=== PATIENT | female | born 1960 | race Caucasian/White ===

== ENCOUNTER 2021-10-21 22:04 | Observation (INO) | payer OTHER, SELFPAY ==
[2021-10-21 22:33] VITALS: BP 136/78; PULSE 88; RESP 16; TEMP 36.9; O2SAT 99; BMI 22.8
[2021-10-22] VITALS (26 sets, daily range): BP systolic 83–135; BP diastolic 48–74; PULSE 61–95; RESP 16–19; TEMP 36.6–37.8; O2SAT 93–100; BMI 22.8
--- NOTE | 2021-10-22 00:40 | CTR_ITS ---
PROCEDURE INFORMATION: Exam: CT Abdomen And Pelvis With Contrast Exam date and time: 10/22/2021 12:40 AM Age: 61 years old Clinical indication: Nausea and vomiting; Abdominal pain; Localized; Right upper quadrant (ruq); Additional info: Ruq pain TECHNIQUE: Imaging protocol: Computed tomography of the abdomen and pelvis with contrast. Radiation optimization: All CT scans at this facility use at least one of these dose optimization techniques: automated exposure control; mA and/or kV adjustment per patient size (includes targeted exams where dose is matched to clinical indication); or iterative reconstruction. Contrast material: OMNI 300; Contrast volume: 95 ml; Contrast route: INTRAVENOUS (IV); COMPARISON: US Renal Kidney Structu* [id number] 2016-02-12 14:17 RADIATION DOSE METRICS: Total DLP (mGy-cm): 1066.72 FINDINGS: Liver: Normal. No mass. Gallbladder and bile ducts: Normal. No calcified stones. No ductal dilation. Pancreas: Normal. No ductal dilation. Spleen: Normal. No splenomegaly. Adrenal glands: Normal. No mass. Kidneys and ureters: For 9 mm benign simple right renal cyst. Small, less than 5 mm, renal hypodensity. Highly likely to be benign and does not require follow-up imaging or biopsy per ACR. Stomach and bowel: Gastritis with gastric wall thickening versus incomplete distension. Appendix: 9 mm thickened appendix containing numerous appendicoliths. Minimal stranding. Suspicious for acute appendicitis. Intraperitoneal space: Unremarkable. No free air. No significant fluid collection. Vasculature: Circumaortic left renal vein. Lymph nodes: Unremarkable. No enlarged lymph nodes. Urinary bladder: Unremarkable as visualized. Reproductive: Hysterectomy. Bones/joints: Unremarkable. No acute fracture. Soft tissues: Unremarkable. CT/CT abdomen pelvis w con* [id number] IMPRESSION: 1. 9 mm thickened appendix contains numerous appendicoliths. Minimal stranding. Suspicious for acute appendicitis. 2. Gastritis with gastric wall thickening versus incomplete distension. 3. No radiopaque gallstones or duct dilatation. COMMENTS: Consistent with the [employer]'s Incidental Findings Committee white paper (J Am Angi Radiol 2018): Any incidental renal lesion less than 1 cm or classified as too small to characterize, or any incidental cystic renal lesion characterized as simple-appearing, is likely benign. No follow-up imaging is recommended for these lesions per consensus recommendations based on imaging criteria. Radiation Dose CTDIVOL = (mGy): DLP = 1066.72 (mGy-cm)
[2021-10-22 00:55] LABS: Basophils % 0.2 %; Hematocrit 39.2 % (37.0-47.0); Hemoglobin 12.9 g/dL (11.5-15.3); Lymphocytes # 0.4 10^3/uL (0.8-4.8); Lymphocytes % 2.2 %; Mean Corpuscular HGB Conc 32.9 g/dL (30.0-36.0); Mean Corpuscular Hemoglobin 31.4 pg (28.0-34.0); Mean Corpuscular Volume 95.4 fl (81-99); Mean Platelet Volume 12.2 fL (7.4-10.4); Monocytes # 0.6 10^3/uL (0.2-0.9); Monocytes % 3.1 %; Neutrophils # 17.45 10^3/uL (1.8-7.7); Nucleated Red Blood Cells % 0 %; Platelet Count 193 10^3/cmm (130-400); Red Blood Count 4.11 10^6/uL (4.1-5.3); White Blood Count 18.6 10^3/uL (4.0-10.0)
[2021-10-22] MEDS: ketorolac 30 mg/mL INJ 15 MG IVP (01:00)
[2021-10-22] MEDS: morphine 4 mg/mL SDV 1 mL IVP ×5 (01:01→08:12)
[2021-10-22] MEDS: ondansetron 2 mg/ML SDV 2 mL 4 MG IVP ×2 (01:03→06:13)
[2021-10-22 01:17] LABS: Alanine Aminotransferase 17 U/L (0-33); Albumin Level 4.3 g/dL (3.5-5.2); Alkaline Phosphatase 44 IU/L (35-105); Anion Gap 18.1 (5-19); Aspartate Amino Transferase 19 U/L (0-32); Blood Urea Nitrogen 14 mg/dL (8-23); Calcium 8.6 mg/dL (8.5-10.5); Carbon Dioxide 21 mmol/L (22-29); Chloride 103 mmol/L (98-107); Globulin 2.3 g/dL (1.3-4.6); Glucose 120 mg/dL (65-115); Lipase 16 U/L (13-60); Osmolality Calculated 288 mOsm/kg (285-295); Potassium 4.1 mmol/L (3.5-5.1); Sodium 138 mmol/L (136-145); Total Bilirubin 0.5 mg/dL (0.15-1.2); Total Protein 6.6 g/dL (6.6-8.7)
[2021-10-22] MEDS: iohexol 300 mg/mL 100 mL Btl IV (01:40)
--- NOTE | 2021-10-22 02:05 | ED_ITS ---
HPI - Abdominal Pain General: Chief Complaint: Abdominal Pain Stated Complaint: abd pain Time Seen by Provider: 10/22/21 00:34 History of Present Illness: MD elicited complaint: abdominal pain Pertinent past history: other Onset (ago): hour(s) Pain Consistency: constant Location: Epigastric and RUQ Severity: severe Quality: stabbing and aching Radiation: back Migration to: no migration Relieving factors: nothing Associated Symptoms: Reports vomiting; Denies change in bowel habits, change in stool character, diarrhea, fever(s) and hematemesis Review of Systems Const: Denies: fever(s) Card: Denies: chest pain Resp: Denies: dyspnea GI: Reports: vomiting; Denies: hematemesis, diarrhea, change in bowel habits or change in stool character Physical Exam Const: COMMON NORMALS: patient oriented x3 and alert GENERAL APPEARANCE: ill appearing NUTRITIONAL APPEARANCE: thin HENMT: COMMON NORMALS: normocephalic HEAD & SCALP: normocephalic Chest: COMMONS NORMALS: normal inspection of the chest Resp: COMMON NORMALS: normal respiratory effort, No use of accessory muscles and clear to auscultation bilaterally AUSCULTATION: clear to auscultation bilaterally Cardio: COMMON NORMALS: regular rate and regular rhythm RATE: regular rate RHYTHM: regular rhythm GI: COMMON NORMALS: Normal to inspection, nondistended, normoactive bowel sounds present PALPATION: Yes Firmness to palpation present (GI), Yes Tenderness to palpation present (GI) and Yes Guarding due to palpation present (GI) Neuro: COMMON NORMALS: patient oriented x3 SENSORIUM/ORIENTATION: Yes alert Course Consultations: Consultation #1: Josh Time: 03:35 Vital Signs: Vital signs: Vital Signs Temperature 98.5 F 10/21/21 22:33 Pulse Rate 81 10/22/21 01:03 Respiratory Rate 16 10/22/21 02:51 Blood Pressure 135/74 10/22/21 01:03 Pulse Oximetry 97 10/22/21 01:03 MDM - Abdominal Pain MDM Narrative: Medical decision making narrative: 61-year-old female with essentially epigastric pain which is now migrated to her right lower quadrant. Her white blood cell count is 18.6 with 90% neutrophils. Her bicarbonate level is 21. She is received a liter of fluid. By CT scan, she has a 9 mm appendix with periappendiceal fat stranding. She has an allergy to penicillins. She will get ciprofloxacin and Flagyl. Surgery notified agrees to observation Lab Data: Labs: Lab Results 10/22/21 10/22/21 10/22/21 00:46 00:46 03:24 WBC 18.6 10^3/uL H 10 ^3/uL (4.0-10.0) RBC 4.11 10^6/uL 10^6 /uL (4.1-5.3) Hgb 12.9 g/dL g/dL (11.5-15.3) Hct 39.2 % % (37.0-47.0) MCV 95.4 fl fl (81-99) MCH 31.4 pg pg (28.0-34.0) MCHC 32.9 g/dL g/dL (30.0-36.0) RDW 12.0 % L % (12.1-15.1) Plt Count 193 10^3/cmm 10^3 /cmm (130-400) MPV 12.2 fL H fL (7.4-10.4) Neut % (Auto) 94.0 % % Lymph % (Auto) 2.2 % % [place] % (Auto) 3.1 % % Eos % (Auto) 0.0 % % Baso % (Auto) 0.2 % % Neut # (Auto) 17.45 10^3/uL H 1 0^3/uL (1.8-7.7) Lymph # (Auto) 0.4 10^3/uL L 10^ 3/uL (0.8-4.8) [place] # (Auto) 0.6 10^3/uL 10^3/ uL (0.2-0.9) Eos # (Auto) 0.0 10^3/uL 10^3/ uL (0.0-0.8) Baso # (Auto) 0.0 10^3/uL 10^3/ uL (0.0-0.1) Nucleated RBC % (a uto) 0 % % Nucleated RBCs # 0.0 /100WBC /100W BC Sodium 138 mmol/L mmol/L (136-145) Potassium 4.1 mmol/L mmol/L (3.5-5.1) Chloride 103 mmol/L mmol/L (98-107) Carbon Dioxide 21 mmol/L L mmol/ L (22-29) Anion Gap 18.1 (5-19) BUN 14 mg/dL mg/dL (8-23) Creatinine 0.6 mg/dL mg/dL (0.5-0.9) GFR Calculation 102.0 mL/min mL/m in (90-130) Glucose 120 mg/dL H mg/dL (65-115) Calculated Osmolal ity 288 mOsm/kg mOsm/ kg (285-295) Calcium 8.6 mg/dL mg/dL (8.5-10.5) Total Bilirubin 0.5 mg/dL mg/dL (0.15-1.2) AST 19 U/L U/L (0-32) ALT 17 U/L U/L (0-33) Alkaline Phosphata se 44 IU/L IU/L (35-105) Total Protein 6.6 g/dL g/dL (6.6-8.7) Albumin 4.3 g/dL g/dL (3.5-5.2) Globulin 2.3 g/dL g/dL (1.3-4.6) Lipase 16 U/L U/L (13-60) Urine Color Yellow (Yellow) Urine Appearance Clear (CLEAR) Urine pH 5 (5-7) Ur Specific Gravit y 1.015 (1.005-1.030) Urine Protein Neg (Negative) Urine Glucose (UA) Norm (Normal) Urine Ketones 2+ H (Negative) Urine Blood 2+ H (Negative) Urine Nitrate Negative (Negative) Urine Bilirubin Neg (Negative) Urine Urobilinogen Norm mg/dL mg/dL (Negative) Ur Leukocyte Milagros ase Negative (Negative) Amorphous Sediment Not Reportable Discharge Plan Discharge Patient Disposition: Placed in Observation Clinical Impression: Acute appendicitis Qualifiers: Acute appendicitis type: with localized peritonitis Appendicitis gangrene presence: without gangrene Appendicitis perforation presence: without perforation Appendicitis abscess presence: without abscess Qualified Code(s): K35.30 - Acute appendicitis with localized peritonitis, without perforation or gangrene Coding Level of Care Code ED Continuity Reader for [facility] Fwd Exam Detailed
[2021-10-22] MEDS: sodium chloride 0.9% 1,000 ML 999 ML IV (02:40)
[2021-10-22 03:34] LABS: Add Urine Microscopic? YES; Bilirubin Urine Neg (Negative); Blood Urine 2+ (Negative); Glucose Urine UA Norm (Normal); Ketones Urine 2+ (Negative); Leukocyte Esterase Urine Negative (Negative); Nitrate Urine Negative (Negative); Protein Urine Neg (Negative); Specific Gravity, Urine 1.015 (1.005-1.030); Urine Appearance Clear (CLEAR); Urine Color Yellow (Yellow); Urobilinogen Urine Norm (Negative); pH Urine 5 (5-7)
[2021-10-22] MEDS: ciprofloxacin 400 MG/200 ML PREMIX 200 MG IV ×2 (03:38→15:09)
[2021-10-22 03:39] LABS: Add Urine Culture? No; Bacteria Urine TRACE /hpf; RBC Urine 0-4 /hpf (0-2); Squamous Epithelial Cell Urine 0-4 /hpf (0-5); WBC Urine 0-4 /hpf (0-5)
[2021-10-22] MEDS: metroNIDAZOLE IV 500 MG/100 ML PREMIX 100 MG IV ×3 (04:08→21:42)
[2021-10-22] MEDS: sodium chloride 0.9% 1,000 ML 125 ML IV (06:06)
--- NOTE | 2021-10-22 07:01 | PM.HP ---
Providers/Chief Complaint Admitting Physician: Champ Moreno MD Chief Complaint: abd pain History of Present Illness Yamile Arellano is a 61 year old female who developed some lower back pain yesterday. She thought maybe she was constipated even though her bowel habits have been fairly normal recently, and used a couple enemas at home without any significant results. She said the pain then moved to the anterior aspect of her abdomen in the epigastrium. Over the last 12 hours it has moved down to the right lower quadrant. She says she had chills at home and had several episodes of vomiting. There was no evidence of hematemesis. She came to the emergency room and a CAT scan showed changes consistent with acute appendicitis. Review of Systems Const: Reports: chills GI: Reports: abdominal pain, nausea and vomiting; Denies: change in bowel habits Medications/Allergies Allergies Allergy/AdvReac Type Severity Reaction Status Date / Time amoxicillin [From Augmentin] Allergy ALGY-Swell Verified 10/21/21 22:42 Lip/Tongue/Throat cefdinir [From Omnicef] Allergy ALGY-Swell Verified 10/21/21 22:42 Lip/Tongue/Throat clarithromycin [From Biaxin] Allergy ADR-Abdominal Verified 10/21/21 22:42 Pain clavulanic acid Allergy ALGY-Swell Verified 10/21/21 22:42 [From Augmentin] Lip/Tongue/Throat hydrocodone Allergy ADR-Anxiety Verified 10/21/21 22:42 levofloxacin [From Levaquin] Allergy ADR-Abdominal Verified 10/21/21 22:42 Pain levothyroxine sodium Allergy ALGY-Hives Verified 10/21/21 22:42 [From Synthroid] methylprednisolone Allergy ADR-Nausea Verified 10/21/21 22:42 sulfamethoxazole Allergy ALGY-Swell Verified 10/21/21 22:42 [From Bactrim] Lip/Tongue/Throat trimethoprim [From Bactrim] Allergy ALGY-Swell Verified 10/21/21 22:42 Lip/Tongue/Throat PFSH Acute PFSH: Medical History (Updated 10/22/21 @ 07:15 by Champ Moreno MD) Hypothyroidism Surgical History (Updated 10/22/21 @ 07:15 by Champ Moreno MD) History of hysterectomy History of sinus surgery x 2 Social History (Updated 10/22/21 @ 07:18 by Champ Morneo MD) Smoking and tobacco status: never smoked Alcohol intake: current Alcohol use comment: Infrequently Vitals/I&O/Wt Last Vital Signs Temp 98.5 F 10/21/21 22:33 Pulse 74 10/22/21 05:06 Resp 18 10/22/21 06:13 BP 135/74 10/22/21 05:06 Pulse Ox 96 10/22/21 05:06 10/21/21 10/22/21 10/22/21 22:59 06:59 14:59 Intake Total 1300 / 1300 Balance 1300 / 1300 Weight last 48 hrs Weight 150 lb Weight 150 lb Physical Exam Narrative: EXAM NARRATIVE: The patient was encountered in her hospital room. She does not appear to be in any acute distress. The pupils are equal. No carotid bruits are heard. The lungs are clear anteriorly. The heart is regular. The abdomen reveals hypoactive bowel sounds but is soft and nondistended. The patient's maximum point of tenderness is in the right lower quadrant over McBurney's point. Percussion tenderness is equivocal. Rovsing sign is negative. No obvious masses are palpated. The extremities reveal no edema. Neurologically the patient appears to be grossly intact. Data : 10/22/21 00:46 10/22/21 00:46 CT Abd/Pel: Radiologist's impression: CT abdomen/pelvis 10/22/2021 IMPRESSION: 1. 9 mm thickened appendix contains numerous appendicoliths. Minimal stranding. Suspicious for acute appendicitis. 2. Gastritis with gastric wall thickening versus incomplete distension. 3. No radiopaque gallstones or duct dilatation. A&P Assessment and plan (1) Acute appendicitis: CT reviewed. I agree with the assessment that the patient has multiple fecaliths within the appendix and the appendix is dilated with some subtle surrounding inflammatory changes. The ileum appears to be anterior and appears to be filled with fluid consistent with an ileus. I discussed appendicitis and appendectomies with the patient in some detail. We also discussed conservative management with medications. Surgical risks including bleeding, infection, internal organ injury, etc. were all gone over. The patient seems to understand and would prefer to undergo an appendectomy today. The patient will be kept n.p.o. and I will make arrangements for a laparoscopic or possibly open appendectomy later today. Status: Acute Qualifiers: Acute appendicitis type: with localized peritonitis Appendicitis abscess presence: without abscess Appendicitis gangrene presence: without gangrene Appendicitis perforation presence: without perforation Qualified Code(s): K35.30 - Acute appendicitis with localized peritonitis, without perforation or gangrene Attestations Medical Necessity Statement*: Based on my medical assessment, presenting symptoms and consideration of the scope of surgical therapy, I expect this patient will require treatment in the hospital for a period of time spanning less than 2 midnights, and is therefore being placed in observation status. 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
[2021-10-22] MEDS: clindamycin 900 MG/50 ML PREMIX 100 MG IV (11:15)
--- NOTE | 2021-10-22 11:58 | P.OP_ITS ---
Operative Report Date of procedure: October 22, 2021 Pre-op Diagnosis: Acute appendicitis. Post-op diagnosis: same Procedure Done: Laparoscopic appendectomy. Specimens removed/disposition: Appendix. Surgeon: Champ Moreno Anesthesia: General Estimated blood loss (mL): 5 Complications: None. Condition: stable Disposition: PACU Procedure: The patient was brought to the Operating Room and was placed in a supine position on the operating room table. General endotracheal anesthesia was induced. The abdomen was prepped and draped in a sterile fashion. A small vertical incision was carried out in the superior aspect of the umbilicus. Blunt dissection was carried out down to the fascia, which was grasped with a Bettina clamp. A stay suture of 0 Vicryl was placed on either side of the midline and the midline fascia was incised. The underlying peritoneum was opened bluntly and the Dinorah port was placed directly into the peritoneal cavity and was held in place with the inflatable balloon. The peritoneal cavity was insufflated with carbon dioxide. The laparoscope was used to inspect the peritoneal cavity. The omentum was mildly elevated in the right lower quadrant and it was eventually confirmed the appendix was just underneath this. No other gross abnormalities were noted. Two 5-millimeter ports were placed in the left lower quadrant under direct vision. The patient was tilted in a Trendelenburg position and slightly to the left side. A laparoscopic Kristine was used to elevate the cecum and the appendix was identified. The omentum was adhesed to one side of the appendix and was freed. The appendix was clearly dilated and inflamed throughout its length. No evidence of gross perforation was present. The appendix was freed using blunt dissection and was then elevated. The mesoappendix was divided using cautery to maintain hemostasis at the base of the appendix. The base of the appendix appeared healthy and was divided using an endoscopic stapler. The appendix was removed from the peritoneal cavity after being placed in a laparoscopic bag. The right lower quadrant and pelvis were irrigated. The staple line on the cecum was identified and appeared to be in good condition. The Dinorah port was removed from the umbilical site and the stay sutures of Vicryl were tied to each other at the umbilicus, closing the fascial defect so that it was airtight. A final round of irrigation was carried out in the right lower quadrant and the pelvis. No ongoing problems were seen. The remaining ports were removed from the abdominal wall as the pneumoperitoneum was evacuated. All skin incisions were closed using inverted interrupted sutures of 4-0 Vicryl. Benzoin and Steri-Strips were placed over the incisions and Band- Aids followed. The patient was taken to the Recovery Room in stable condition postoperatively.
--- NOTE | 2021-10-22 12:14 | SUR.PHASEI ---
pt resting quietly with good resp effort, vss abd soft with 3 sites d/i
--- NOTE | 2021-10-22 14:31 | ANE.PACU2 ---
Inpatient post-anesthesia follow up: Airway intact: Yes Vital signs: Temperature 97.8 F Pulse Rate 76 Respiratory Rate 16 Blood Pressure 96/54 Pulse Oximetry 99 Oxygen Delivery Me thod Nasal Cannula Oxygen Flow Rate 2 Fraction of Inspir ed Oxygen Hydration adequate: Yes Nausea and vomiting: No Pain level: 2 Mental status: Baseline
[2021-10-22] MEDS: D5-NS 0.45% + KCL 20 mEq 20 MEQ/1,000 ML BAG 100 MEQ IV (15:09)
[2021-10-22] MEDS: acetaminophen-codeine 300-30mg Tablet PO ×2 (15:09→19:54)
[2021-10-22] MEDS: heparin 5,000 unit/mL INJ 1 mL 5000 UNIT SUBCUT (15:09)
[2021-10-22] MEDS: ketorolac 30 mg/mL INJ IVP (18:34)
[2021-10-22] MEDS: famotidine 20 mg/2 mL INJ IVP (21:27)
[2021-10-23] MEDS: acetaminophen-codeine 300-30mg Tablet PO ×2 (01:12→06:15)
[2021-10-23] MEDS: D5-NS 0.45% + KCL 20 mEq 20 MEQ/1,000 ML BAG 100 MEQ IV (01:12)
[2021-10-23] MEDS: heparin 5,000 unit/mL INJ 1 mL 5000 UNIT SUBCUT (01:13)
[2021-10-23] MEDS: ciprofloxacin 400 MG/200 ML PREMIX 200 MG IV (03:42)
[2021-10-23 04:00] VITALS: BP 97/59; PULSE 60; RESP 18; TEMP 36.4; O2SAT 90
[2021-10-23] MEDS: metroNIDAZOLE IV 500 MG/100 ML PREMIX 100 MG IV (06:15)
[2021-10-23 07:27] VITALS: BP 108/69; PULSE 61; RESP 18; TEMP 36.7; O2SAT 96
--- NOTE | 2021-10-23 07:39 | P.DS_ITS ---
Discharge Providers Date of Admission: 10/22/21 03:38 Date of Discharge: October 23, 2021 Attending Provider at Admission: Champ Moreno MD Attending Provider at Discharge: Champ Moreno MD Diagnoses at Discharge Discharge Diagnosis (1) Acute appendicitis: Status: Acute Qualifiers: Acute appendicitis type: with localized peritonitis Appendicitis absce ss presence: without abscess Appendicitis gangrene presence: without gangrene Appendicitis perforation presence: without perforation Qualified Code(s): K35.30 - Acute appendicitis with localized peritonitis, without perforation or gangrene Reason for Visit Reason for Visit: abd pain Hospital Course Hospital Course This is a 61-year-old white female who presented to the emergency department with abdominal pain. A CAT scan showed changes consistent with acute appendicitis. She was taken to the operating room and a laparoscopic appendectomy was performed. By the following morning she was already feeling better. Her blood pressure had appeared to dip somewhat in the night with administration of pain medications, but she was otherwise doing well. Her heart rate remained normal and she remained afebrile. She indicated that she was anxious to try to go home. Arrangements were made for her to be discharged on oral antibiotic for 5 days. She was instructed with respect to wound care, activity limitations, diet, etc. Arrangements will be made for the patient to follow-up with me in the office next week. Physical Exam Narrative: EXAM NARRATIVE: Bowel sounds are present. The laparoscopic incisions look good. Discharge Data Data Completed and Pending: Completed Studies During Hospitalization Category Date Time Status CT abdomen pelvis w con* [id number] Urge nt Cat Scan 10/22/21 00:40 Completed Pending at discharge Category Date Time Status ES surgery / GI i mages Routine Exams 10/22/21 10:24 Ordered Pathology: Surgic al [PTH] Routine Pth 10/22/21 13:43 Received Vitals: Last Vital Signs Temp 98.0 F 10/23/21 07:27 Pulse 61 10/23/21 07:27 Resp 18 10/23/21 07:27 BP 108/69 10/23/21 07:27 Pulse Ox 96 10/23/21 07:27 Discharge Plan Discharge Patient Disposition: Home Condition: Stable Prescriptions: New acetaminophen-codeine 300-30 mg tablet 1 - 2 tab PO Q6H PRN (Reason: pain) Qty: 20 RF: 0 ciprofloxacin HCl 500 mg tablet 500 mg PO BID Qty: 10 RF: 0 Continued multivitamin Tablet 1 tab PO DAILY RF: 0 Vitamin C 1,000 mg Tablet 1,000 mg PO DAILY RF: 0 Vitamin D3 50 mcg (2,000 unit) Tablet 2,000 - 4,000 unit PO DAILY RF: 0 [place] Thyroid 30 mg tablet See Rx Instructions .ROUTE .COMPLEX RF: 0 coQ10 (ubiquinol) 100 mg Capsule 100 mg PO DAILY RF: 0 Fish Oil 2 cap PO DAILY RF: 0 Estriol/Estradiol/G/Vc 2/4mg/M See Rx Instructions .ROUTE .COMPLEX RF: 0 Progesterone/Ed/Pg/Vc 200mg/Ml See Rx Instructions .ROUTE .COMPLEX RF: 0 Testosterone/G/Vc 6mg/Ml Cream See Rx Instructions .ROUTE .COMPLEX RF: 0 Discharge Orders: Discharge Order (Routine); Ordered 10/23/21 Ordered By: Champ Moreno Referrals: Champ Moreno MD [Physician] - 7-10 days (Nursing: Please call Dr. Moreno's office ([phone]) and make an appointment for the patient to be seen next week.) Discharge Diet: Advance as tolerated Discharge Activity: Limit activity as instructed Patient Instructions: Appendicitis (GEN), Opioid Safety Activity Restrictions/Additional Instructions: 1. Discharge to home today. 2. Appointment to see Dr. Moreno next week as above. 3. Bandaids off later today, leave Steri-Strip(s) on, may shower. 4. Tylenol #3 1-2 tablets by mouth every 6 hours as needed for pain. #20, no refills. 5. Ciprofloxacin 500 mg 1 p.o. twice daily until gone. #10, no refills No lifting over 20 pounds, no repetitive bending or twisting, no strenuous pushing / pulling or other heavy activity. Ambulate regularly. May go up and down steps if needed. Discharge Attestations Time Spent in Discharge Care*: less than 30 min Quality Metrics Clinical Quality Measures During this hospital stay, did patient experience: None Coding Level of Care Code Acute Chg FW DC note Diagnoses Acute appendicitis K35.30 Acute appendicitis type: with localized peritonitis Appendicitis abscess presence: without abscess Appendicitis gangrene presence: without gangrene Appendicitis perforation presence: without perforation
[2021-10-23] MEDS: famotidine 20 mg/2 mL INJ IVP (08:25)
[2021-10-23 09:53] VITALS: BP 108/69; PULSE 61; RESP 18; TEMP 36.7; O2SAT 96
== END 2021-10-23 09:54 | disposition home or self-care (01) ==
LOC: ER 10-22 03:39 → MEDSURG 10-22 04:19
PROVIDERS: Nurse Practitioner Family; Admitting Provider Surgery; Emergency Provider Emergency Medicine; Visit Provider Surgery
PROC: 0DTJ4ZZ Resection of Appendix, Percutaneous Endoscopic Approach (ICD-10-PCS; CPT 44970; principal; 2021-10-22 11:00)
DX: K35.30 Acute appendicitis with localized peritonitis, without perforation or gangrene (principal); E03.9 Hypothyroidism, unspecified; Z90.710 Acquired absence of both cervix and uterus; Z79.818 Long term (current) use of other agents affecting estrogen receptors and estrogen levels; Z79.899 Other long term (current) drug therapy
CPT/HCPCS: 44970; 74177; 80053; 81001; 83690; 85025; 88304; 96365; 96366; 96367; 96372; 96375; 96376; 99285; G0378; J0330; J0744; J1100; J1644; J1885; J2001; J2250; J2270; J2370; J2405; J2704; J2710; J3010; J3490; J7030; Q9967; S0030

== ENCOUNTER → 2024-02-16 16:22 | Outpatient (BNVA) | payer MEDICAID, SELFPAY | PROVIDERS: PCP Family Medicine; Visit Provider Family Medicine | DX: Z20.2 Contact with and (suspected) exposure to infections with a predominantly sexual mode of transmission (principal) | CPT/HCPCS: 87491; 87591 ==